=== PATIENT | male | born 1980 | race Two or more races ===

== ENCOUNTER 2025-01-13 03:22 | Emergency (ER) | payer MEDICAID, SELFPAY ==
[2025-01-13 03:24] VITALS: BMI 31.6
[2025-01-13 03:30] VITALS: BP 158/89; PULSE 87; RESP 20; TEMP 37.2; O2SAT 96
--- NOTE | 2025-01-13 03:36 | XR_ITS ---
Examination: PA lateral chest 2 views TECHNIQUE: Upright PA lateral chest 2 views Date and time: January 13, 2025 0340 hours Comparison January 13, 2024 INDICATIONS: Coughing beginning 2 weeks ago. FINDINGS: Normal heart size. No lobar pneumonia or pulmonary edema. Intact osseous structures IMPRESSION: No lobar pneumonia identified
--- NOTE | 2025-01-13 03:46 | PD.EDURI ---
Upper Respiratory Inf. RME/HPI General Chief Complaint: Flu Like Symptoms Stated Complaint: COUGHING Time Seen by Provider: 01/13/25 03:35 Arrival date/time: 01/13/25 03:22 44M with no significant PMH presents to ED with 2 weeks of cough. Last week patient went to PCP, who gave him penicillin for presumptive strep throat. Patient has not improved. Limitations: no limitations Related Data Previous Rx's ?Medication ?Instructions ?Recorded meloxicam 7.5 mg tablet 7.5 mg PO QDAY #10 tabs 01/01/23 cyclobenzaprine 10 mg tablet 10 mg PO HS #14 tabs 01/13/24 Allergies Allergy/AdvReac Type Severity Reaction Status Date / Time tramadol Allergy Severe RASH Verified 01/13/25 03:23 Review of Systems Review of Systems Systems Reviewed: All systems reviewed, normal except as documented Constitutional Constitutional: Reports system reviewed and no additional complaints, except as documented, Denies fever(s) and Denies headache(s) ENT Ears, Nose, Mouth, and Throat: Denies disequilibrium and Denies headache(s) Cardiovascular Cardiovascular: Reports system reviewed and no additional complaints, except as documented, Denies chest pain and Denies dyspnea Respiratory Respiratory: Reports system reviewed and no additional complaints, except as documented, Reports as per HPI, Reports cough, Denies dyspnea and Reports pain with cough Gastrointestinal Gastrointestinal: Reports system reviewed and no additional complaints, except as documented, Denies abdominal pain, Denies nausea and Denies vomiting Neurologic Neurologic: Reports system reviewed and no additional complaints, except as documented, Denies confusion, Denies disequilibrium and Denies headache(s) Psychiatric Psychiatric: Denies confusion Past Medical History Past Medical History NEUROLOGIC: Positive Head Trauma; Negative Neurological Disorders, Cerebrovascular Accident, Seizures or Epilepsy CARDIAC: Positive Cardiac Disorders and Edema; Negative Hypercholesterolemia, Congestive Heart Failure or Hypertension RESPIRATORY: Negative Chronic Obstructive Pulmonary Disease (COPD) or Asthma GASTROINTESTINAL: Negative Gastrointestinal Disorders or Obesity GENITOURINARY: Negative Genitourinary Disorders or Renal Disease MUSCULOSKELETAL: Positive Musculoskeletal Disorders and Fractures; Negative Arthritis ENT: Positive Head Trauma ENDOCRINE: Positive Endocrine Disorders and Diabetes Mellitus Type 2; Negative Diabetes Mellitus Type 1 HEMATOLOGIC: Negative Blood Disorders or Sickle Cell Disease OTHER HISTORY: Positive Hospitalization, Chicken Pox and Cancer; Negative Autoimmune Disease, Falls, Blood Transfusions, Blood Transfusion Reaction, Anesthesia Reactions or MRSA Family History FAMILY HISTORY: Positive Family Cardiac Disorders, Family Gastrointestinal Problems, Family Cancer and Family Surgery; Negative Family Psychiatric Problems, Family Respiratory Disorders or Family Anesthesia Reaction Surgical History SURGICAL: Positive Gastric Bypass Surgery and Vasectomy; Negative Abdominal Surgery Social History SMOKING STATUS: Never smoker ED Exam General Limitations: Present no limitations General appearance: Present alert and in no apparent distress Head Head exam: Present atraumatic Eye Eye exam: Present normal appearance, PERRL and EOMI ENT ENT exam: Present normal exam, normal oropharynx and mucous membranes moist Neck Neck exam: Present normal inspection, full ROM and trachea midline Chest Chest inspection: Present normal inspection and symmetric chest wall rise Respiratory Respiratory exam: Present normal lung sounds bilaterally Cardiovascular Cardiovascular exam: Present regular rate, normal rhythm and normal heart sounds Abdominal Exam Abdominal exam: Present soft and normal bowel sounds Extremities Exam Extremities exam: Present normal inspection and full ROM Back Exam Back exam: Present normal inspection and full ROM Neurological Exam Neurological exam: Present alert, oriented X3 and CN II-XII intact Psychiatric Psychiatric exam: Present normal affect and normal mood Skin Skin exam: Present warm, dry, intact and normal color Course Quality Measures none Orders Category Date Time Status XR chest 2V Stat Exams 01/13/25 03:36 Taken Vital Signs Vital signs: Vital Signs Temperature 99.0 F 01/13/25 03:30 Pulse Rate 87 01/13/25 03:30 Respiratory Rate 20 01/13/25 03:30 Blood Pressure 158/89 H 01/13/25 03:30 Pulse Oximetry (%) 96 01/13/25 03:30 Oxygen Delivery Method Room Air 01/13/25 03:30 O2 at 96% on RA and WNLs Upper Respiratory Infection MDM Narrative MDM Narrative:: 44M with no significant PMH presents to ED with 2 weeks of cough. Last week patient went to PCP, who gave him penicillin for presumptive strep throat. Patient has not improved. Physical exam reveals clear lungs. Normal WOB. Patient is afebrile, calm, and alert. Patient data External records reviewed:: [facility] previous records Clinical information provided by:: patient Social determinants that could affect healthcare access:: none Patient has the following chronic illnesses:: none How is presenting disease/condition affected by chronic disease/condition?: no chronic disease Evaluation data The following diagnostics were reviewed and interpreted by me:: radiology exam(s) Lab and/or radiology exams considered but not ordered:: ordered Interpretation Summary: above Consultations Consultation(s) initiated? (list below): No Diagnosis Upper Respiratory Differential Diagnosis: upper respiratory infection, croup, otitis media, sinusitis, viral infection, bronchitis, influenza, pharyngitis and other (CAP) Admission Indicated Admission indicated?: not indicated Admission Request Was there a request for admission?: No Disposition Plan Disposition Plan: Discharge Discharge Attestation Discharge Attestation: The patient and all family members were given an opportunity to ask questions and understood the discharge instructions. Discharge instructions specifically effects, indications for sooner follow up or return to the emergency department, and the expected course of current diagnosis. Patient condition: Stable Discharge Plan Prescriptions/Referrals Prescriptions/Med Rec: No Action meloxicam 7.5 mg tablet 7.5 mg PO QDAY Qty: 10 0RF cyclobenzaprine 10 mg tablet 10 mg PO HS Qty: 14 0RF Patient/Caregiver Discharge Instructions Print Language: Maori
--- NOTE | 2025-01-13 04:36 | PRELIM_ITS ---
Radiographs of the chest (2 views). January 13, 2025 0339 hours Clinical history: Cough 2 weeks Findings: The heart, mediastinum and pulmonary michelle are unremarkable. The lungs are clear. There is no pleural effusion. The bony thorax is unremarkable. Impression: No focal consolidation or pleural effusion. Report Electronically Signed By: Jerrod Martinez 01/13/2025 4:35:02 AM [EST]
[2025-01-13] MEDS: DEXAMETHASONE SOD PHOS INJ 10 MG/ML VIAL PO (04:51)
--- NOTE | 2025-01-13 05:44 | PD.EDRME ---
Rapid Medical Screening Exam [facility] Arrival date/time: 01/13/25 03:22 44M with no significant PMH presents to ED with 2 weeks of cough and some CP/SOB. Last week patient went to PCP, who gave him penicillin for presumptive strep throat. Patient has not improved. Steroids also hasn't improved symptoms. Chief Complaint: Flu Like Symptoms Time Seen by Provider: 01/13/25 03:35 Vital signs: Vital Signs Temperature 99.0 F 01/13/25 03:30 Pulse Rate 87 01/13/25 03:30 Respiratory Rate 20 01/13/25 03:30 Blood Pressure 158/89 H 01/13/25 03:30 Pulse Oximetry (%) 96 01/13/25 03:30 Oxygen Delivery Method Room Air 01/13/25 03:30
[2025-01-13 05:46] VITALS: BP 153/103; PULSE 78; RESP 18; TEMP 37; O2SAT 95
[2025-01-13 06:40] LABS: Basophils # (Auto) 0.1 Thou/mm3 (0.0-0.2); Basophils % (Auto) 1 % (0-2.5); Eosinophils # (Auto) 0.5 Thou/mm3 (0.0-0.5); Eosinophils % (Auto) 4 % (0-10); Hematocrit 44.3 % (41.0-53.0); Hemoglobin 15.7 g/dL (13.5-16.0); Immature Granulocytes Auto 0.05 Thou/mm3 (0.00-0.00); Lymphocytes # (Auto) 2.4 Thou/mm3 (1.0-4.8); Lymphocytes % (Auto) 18 % (10-50); Mean Corpuscular HGB Conc 35.4 g/dl (31.0-37.0); Mean Corpuscular Hemoglobin 31.8 pg (25.0-35.0); Mean Corpuscular Volume 90 fL (80-100); Monocytes # (Auto) 0.7 Thou/mm3 (0.0-0.8); Monocytes % (Auto) 5 % (0-12); Neutrophils # (Auto) 9.6 Thou/mm3 (1.8-7.7); Neutrophils % (Auto) 73 % (37-80); Nucleated Red Blood Cell # 0.00 Thou/mm3 (0.00-0.00); Nucleated Red Blood Cell % 0 /100 WBC (0); Platelet Count 193 Thou/mm3 (140-440); RDW Standard Deviation 43.5 fL (35.1-43.9); Red Blood Count 4.93 Miln/mm3 (4.50-5.90); White Blood Count 13.2 Thou/mm3 (3.8-10.6)
[2025-01-13 07:33] LABS: Alanine Aminotransferase 23 U/L (10-49); Albumin, Serum 4.5 gm/dL (3.5-5.0); Albumin/Globulin Ratio 1.6 (1.2-2.2); Alkaline Phosphatase 67 U/L (46-116); Anion Gap 6 (7-16); Aspartate Amino Transferase 31 U/L (0-34); BUN/Creatinine Ratio 7 Ratio (12-20); Bilirubin,Total 0.4 mg/dL (0.3-1.2); Blood Urea Nitrogen 6 mg/dL (9-23); Calcium 9.3 mg/dL (8.3-10.6); Calcium (Corrected) 9.3 mg/dL (8.5-10.1); Carbon Dioxide 27.2 mMol/L (20.0-31.0); Chloride 108 mMol/L (98-107); Creatinine (Component) 0.9 mg/dL (0.6-1.3); Estimated Creatinine Clearance 126.1 mL/min (>60); Globulin 2.8 gm/dL (2.3-3.5); Glucose 129 mg/dL (74-106); Osmolality,Calculated 280 (275-295); Potassium 4.4 mMol/L (3.4-5.1); Procalcitonin 0.05 ng/ml (0.0-0.49); Sodium 141 mMol/L (136-145); Total Protein 7.3 gm/dL (5.7-8.2); Troponin I 0.021 ng/mL (0.0-0.045); eGFR > 60 See Note
--- NOTE | 2025-01-13 08:06 | EDNOTE_ITS ---
<Statement entered by Tina Joel MD - 01/22/25 19:28> As co-signing physician, I was present and available for consult prn. I concur with the plan and care as documented by the midlevel provider. Upper Respiratory Inf. RME/HPI General Chief Complaint: Flu Like Symptoms Stated Complaint: COUGHING Time Seen by Provider: 01/13/25 03:35 Source: patient Arrival date/time: 01/13/25 03:22 44-year-old male with no known medical history presents to the emergency room with a chief complaint of coughing and some thoracic back pain x 2 weeks. Mode of arrival: ambulatory Limitations: no limitations RME / HPI RME / HPI Narrative: 01/13/25 03:22 44M with no significant PMH presents to ED with 2 weeks of cough and some CP/SOB. Last week patient went to PCP, who gave him penicillin for presumptive strep throat. Patient has not improved. Steroids also hasn't improved symptoms. Related Data Previous Rx's ?Medication ?Instructions ?Recorded meloxicam 7.5 mg tablet 7.5 mg PO QDAY #10 tabs 12/14 cyclobenzaprine 10 mg tablet 10 mg PO HS #14 tabs /08/07 Allergies Allergy/AdvReac Type Severity Reaction Status Date / Time tramadol Allergy Severe RASH Verified 01/13/25 03:23 Review of Systems Review of Systems Systems Reviewed: All systems reviewed, normal except as documented Constitutional Constitutional: Reports system reviewed and no additional complaints, except as documented, Denies fatigue, Denies fever(s), Denies headache(s) and Denies weakness Eyes Eyes: Reports system reviewed and no additional complaints, except as documented, Denies blurry vision and Denies change in vision ENT Ears, Nose, Mouth, and Throat: Reports system reviewed and no additional complaints, except as documented, Denies otalgia, Denies headache(s), Denies nasal congestion, Denies throat swelling and Denies vertigo Cardiovascular Cardiovascular: Reports system reviewed and no additional complaints, except as documented, Denies chest pain, Reports dyspnea and Denies dyspnea on exertion Respiratory Respiratory: Reports system reviewed and no additional complaints, except as documented, Reports chest congestion, Reports cough, Reports dyspnea, Denies dyspnea on exertion and Denies wheezing Gastrointestinal Gastrointestinal: Reports system reviewed and no additional complaints, except as documented, Denies abdominal pain, Denies cramping, Denies nausea and Denies vomiting Genitourinary Genitourinary: Reports system reviewed and no additional complaints, except as documented, Denies dysuria and Denies hematuria Musculoskeletal Musculoskeletal: Reports system reviewed and no additional complaints, except as documented and Denies back pain Integumentary/Breasts Skin/Breast: Reports system reviewed and no additional complaints, except as documented and Denies wounds Neurologic Neurologic: Reports system reviewed and no additional complaints, except as doc umented, Denies confusion, Denies headache(s), Denies lack of coordination, Denies vertigo and Denies weakness Psychiatric Psychiatric: Reports system reviewed and no additional complaints, except as documented, Denies anxiety, Denies confusion, Denies depression, Denies paranoia, Denies suicidal ideation and Denies tactile hallucinations Endocrine Endocrine: Reports system reviewed and no additional complaints, except as documented and Denies fatigue Hematologic/Lymphatic Hematologic/Lymphatic: Reports system reviewed and no additional complaints, except as documented and Denies lymphadenopathy Allergic/Immunologic Allergic/Immunologic: Reports system reviewed and no additional complaints, except as documented, Denies throat swelling, Denies urticaria and Denies wheezing Past Medical History Past Medical History NEUROLOGIC: Positive Head Trauma; Negative Neurological Disorders, Cerebrovascular Accident, Seizures or Epilepsy CARDIAC: Positive Cardiac Disorders and Edema; Negative Hypercholesterolemia, Congestive Heart Failure or Hypertension RESPIRATORY: Negative Chronic Obstructive Pulmonary Disease (COPD) or Asthma GASTROINTESTINAL: Negative Gastrointestinal Disorders or Obesity GENITOURINARY: Negative Genitourinary Disorders or Renal Disease MUSCULOSKELETAL: Positive Musculoskeletal Disorders and Fractures; Negative Arthritis ENT: Positive Head Trauma ENDOCRINE: Positive Endocrine Disorders and Diabetes Mellitus Type 2; Negative Diabetes Mellitus Type 1 HEMATOLOGIC: Negative Blood Disorders or Sickle Cell Disease OTHER HISTORY: Positive Hospitalization, Chicken Pox and Cancer; Negative Autoimmune Disease, Falls, Blood Transfusions, Blood Transfusion Reaction, Anesthesia Reactions or MRSA Family History FAMILY HISTORY: Positive Family Cardiac Disorders, Family Gastrointestinal Problems, Family Cancer and Family Surgery; Negative Family Psychiatric Problems, Family Respiratory Disorders or Family Anesthesia Reaction Surgical History SURGICAL: Positive Gastric Bypass Surgery and Vasectomy; Negative Abdominal Surgery Social History SMOKING STATUS: Never smoker ED Exam General Limitations: Present no limitations General appearance: Present alert and in no apparent distress Head Head exam: Present atraumatic Eye Eye exam: Present normal appearance, PERRL and EOMI ENT ENT exam: Present normal exam, normal oropharynx and mucous membranes moist Neck Neck exam: Present normal inspection, full ROM and trachea midline Chest Chest inspection: Present normal inspection and symmetric chest wall rise Respiratory Respiratory exam: Present normal lung sounds bilaterally; Absent respiratory distress, wheezes, stridor, accessory muscle use or prolonged expiratory phase Cardiovascular Cardiovascular exam: Present regular rate, normal rhythm and normal heart sounds; Absent bradycardia, tachycardia or irregular rhythm Abdominal Exam Abdominal exam: Present soft and normal bowel sounds Extremities Exam Extremities exam: Present normal inspection and full ROM Back Exam Back exam: Present normal inspection and full ROM Neurological Exam Neurological exam: Present alert, oriented X3 and CN II-XII intact Psychiatric Psychiatric exam: Present normal affect and normal mood Skin Skin exam: Present warm, dry, intact and normal color Course Quality Measures none Orders Category Date Time Status XR chest 2V Stat Exams 01/13/25 03:36 Taken CBC Stat Lab 01/13/25 06:10 Completed CMP [Comprehensive Metabolic Panel] Stat Lab 01/13/25 06:10 Completed Cocci Serology IgM with reflex to IgG [Cocci Serology, Lab 01/13/25 06:10 Received Unk History] Stat Procalcitonin Stat Lab 01/13/25 06:10 Completed Troponin I Stat Lab 01/13/25 06:10 Completed Dexamethasone Inj [Decadron Inj] Med 01/13/25 04:41 Discontinued 10 mg PO X1 ONE Vital Signs Vital signs: Vital Signs Temperature 99.0 F 01/13/25 03:30 Pulse Rate 87 01/13/25 03:30 Respiratory Rate 20 01/13/25 03:30 Blood Pressure 158/89 H 01/13/25 03:30 Pulse Oximetry (%) 96 01/13/25 03:30 Oxygen Delivery Method Room Air 01/13/25 03:30 O2 saturation 96% within normal limits Upper Respiratory Infection MDM Narrative MDM Narrative:: 44-year-old male with no known medical history presents to the emergency room with a chief complaint of coughing and some thoracic back pain x 2 weeks. Patient is hemodynamically stable and in no apparent distress. The patient is afebrile not tachycardic not tachypneic and O2 saturation is 96% on room air Physical examination shows clear bilateral lung sounds there is no wheezing stridor or any abnormal breath sounds During my reevaluation patient states his breathing has significantly improved after given the steroids. Chest x-ray was negative blood work was within normal limits. Cocci was drawn and the patient was educated that these results will be back in 24 hours Patient was discharged and educated to follow-up with primary care provider in the next 24 to 48 hours and return to the emergency room for any evidence of worsening signs or symptoms Patient data External records reviewed:: [facility] previous records Clinical information provided by:: patient Social determinants that could affect healthcare access:: none Patient has the following chronic illnesses:: No chronic illness How is presenting disease/condition affected by chronic disease/condition?: no chronic disease Evaluation data The following diagnostics were reviewed and interpreted by me:: lab results and radiology exam(s) Lab and/or radiology exams considered but not ordered:: Labs and radiology exams considered in order Interpretation Summary: Chest x-ray-no pneumonic infiltrates Medications / Prescriptions Medications or Prescriptions considered but not ordered:: Medication given Medication administrations:: Medication Administration History Discontinued Medications Dexamethasone Sodium Phosphate (Dexamethasone Sod Phos Inj 10 Mg/Ml Vial) 10 mg PO X1 ONE Stop: 01/13/25 04:42 Last Admin: 01/13/25 04:51 Dose: 10 mg Documented By: CVL Medication given Consultations Consultation(s) initiated? (list below): No Diagnosis Upper Respiratory Differential Diagnosis: upper respiratory infection, viral infection, bronchitis, influenza and other (Community-acquired pneumonia) Most likely diagnosis given after review of the tests above:: Upper respiratory infection Admission Indicated Admission indicated?: not indicated Admission Request Was there a request for admission?: No Disposition Plan Disposition Plan: Discharge Discharge Attestation Discharge Attestation: The patient and all family members were given an opportunity to ask questions and understood the discharge instructions. Discharge instructions specifically effects, indications for sooner follow up or return to the emergency department, and the expected course of current diagnosis. Patient condition: Stable Discharge Plan Plan Patient Disposition: HOME (Self Care) Discharge Disposition comment: Stable Prescriptions/Referrals Prescriptions/Med Rec: No Action meloxicam 7.5 mg tablet 7.5 mg PO QDAY Qty: 10 0RF cyclobenzaprine 10 mg tablet 10 mg PO HS Qty: 14 0RF Referrals: Don Valdes MD [Primary Care Provider] - In 1 week Problem List Clinical Impression: Upper respiratory infection Patient/Caregiver Discharge Instructions Education Materials: ED URI, Viral, No Abx (Adult) Additional Instructions: Please follow-up with your primary care provider in the next 24 to 48 hours Your chest x-ray was completed and was negative for any acute findings. There is no pneumonia. We tested you for valley fever. This test takes 24 hours to get resulted. You can follow-up with the results on your patient portal, or make an appointment with your primary care provider. For any evidence of worsening signs or symptoms return to the emergency room immediately Print Language: Ghanaian Stand Alone Forms: Penny Award Info., Work/School Release, Patient Portal Info Letter PA/[employer] Supervising Physician PA/[employer] Supervising Physician: Stable I am
[2025-01-13 12:00] LABS: Cocci Serology, IgM Negative (Negative)
[2025-01-14 12:50] LABS: Cocci Serology, IgG Negative (Negative)
== END 2025-01-13 08:10 | disposition home or self-care (01) ==
PROVIDERS: Physician Assistant; Emergency Provider Emergency Medicine; PCP Family Medicine
DX: J06.9 Acute upper respiratory infection, unspecified (principal)
CPT/HCPCS: 36415; 71046; 80053; 84145; 84484; 85025; 86331; 86635; 99283; J1100